=== PATIENT | female | born 1990 | race African-American/Black ===

== ENCOUNTER 2022-03-11 11:01 | Emergency (ER) | payer MEDICAID ==
[~2022-03-11] VITALS: Ht 167.6 cm; Wt 107.0 kg
[2022-03-11 11:09] VITALS: BP 103/86
[2022-03-11] MEDS ORDERED: DIPHENHYDRAMINE 25MG CAPSULE PO ONE (12:15)
[2022-03-11] MEDS ORDERED: FLUORESCEIN SODIUM 1MG/STRIP RIGHTEYE ONE (12:30)
[2022-03-11] MEDS ORDERED: TETRACAINE 0.5% OPHTH DROPS 4ML RIGHTEYE ONE (12:30)
[2022-03-11] MEDS ORDERED: DIPHENHYDRAMINE 25MG CAPSULE PO NR (14:15)
[2022-03-11] MEDS ORDERED: POLY10DR RIGHTEYE (14:19)
[2022-03-11] MEDS ORDERED: DIPH25CA83 MT (14:19)
== END 2022-03-11 14:27 | disposition home or self-care (01) ==
LOC: ER 13:06
DX: T63.441A Toxic effect of venom of bees, accidental (unintentional), initial encounter (principal); R60.0 Localized edema; Y93.89 Activity, other specified; Y92.018 Other place in single-family (private) house as the place of occurrence of the external cause
CPT/HCPCS: 99283; Q0163